=== PATIENT | male | born 1995 | race Caucasian/White ===

== ENCOUNTER 2017-02-16 18:38 | Emergency (ER) | payer MEDICAID ==
[~2017-02-16] VITALS: Ht 177.8 cm; Wt 68.0 kg
[2017-02-16 19:00] VITALS: BP 130/81
[2017-02-16] MEDS ORDERED: CYCLOBENZAPRINE HCL 10 MG TAB PO ONE (22:45)
[2017-02-16] MEDS ORDERED: IBUPROFEN 600 MG TAB PO ONE (22:45)
== END 2017-02-16 22:55 | disposition home or self-care (01) ==
LOC: EDBD 18:38 → ER 18:42
DX: S29.019A Strain of muscle and tendon of unspecified wall of thorax, initial encounter (principal); S16.1XXA Strain of muscle, fascia and tendon at neck level, initial encounter; S70.01XA Contusion of right hip, initial encounter; V49.09XA Driver injured in collision with other motor vehicles in nontraffic accident, initial encounter; Y93.89 Activity, other specified; Y92.410 Unspecified street and highway as the place of occurrence of the external cause; Y99.8 Other external cause status
CPT/HCPCS: 72070; 72100; 72125; 73502

== ENCOUNTER 2019-06-12 12:38 | Emergency (ER) | payer MEDICAID ==
[~2019-06-12] VITALS: Ht 177.8 cm; Wt 70.3 kg
[2019-06-12 15:44] VITALS: BP 132/76
== END 2019-06-12 16:02 | disposition home or self-care (01) ==
LOC: ER 12:38
DX: J06.9 Acute upper respiratory infection, unspecified (principal); R51 Headache

== ENCOUNTER 2019-09-13 15:03 | Emergency (ER) | payer OTHER, MEDICAID ==
[~2019-09-13] VITALS: Ht 175.3 cm; Wt 72.6 kg
[2019-09-13] MEDS ORDERED: ACETAMINOPHEN 325 MG TAB PO ONE (15:30)
[2019-09-13 16:21] VITALS: BP 103/68
== END 2019-09-13 16:25 | disposition home or self-care (01) ==
LOC: ER 15:03
DX: S29.012A Strain of muscle and tendon of back wall of thorax, initial encounter (principal); M41.35 Thoracogenic scoliosis, thoracolumbar region; V87.8XXA Person injured in other specified noncollision transport accidents involving motor vehicle (traffic), initial encounter; Y93.55 Activity, bike riding; Y92.488 Other paved roadways as the place of occurrence of the external cause; Y99.8 Other external cause status
CPT/HCPCS: 72070

== ENCOUNTER → 2019-09-27 | Emergency (ER) | payer MEDICAID, OTHER | END | disposition home or self-care (01) | LOC: ER 00:28 | DX: M54.9 Dorsalgia, unspecified (principal); Z53.21 Procedure and treatment not carried out due to patient leaving prior to being seen by health care provider ==

== ENCOUNTER 2019-10-04 16:12 | Emergency (ER) | payer MEDICAID ==
[~2019-10-04] VITALS: Ht 175.3 cm; Wt 72.6 kg
[2019-10-04 16:23] VITALS: BP 116/80
[2019-10-04] MEDS ORDERED: KETOROLAC TROMETH 60MG/2ML VIAL IM ONE (17:15)
== END 2019-10-04 18:22 | disposition home or self-care (01) ==
LOC: ER 16:12
DX: S39.012A Strain of muscle, fascia and tendon of lower back, initial encounter (principal); X50.1XXA Overexertion from prolonged static or awkward postures, initial encounter; Y93.89 Activity, other specified; Y92.89 Other specified places as the place of occurrence of the external cause; Y99.8 Other external cause status
CPT/HCPCS: 96372; 99283; J1885

== ENCOUNTER 2022-03-17 14:50 | Emergency (ER) | payer MEDICAID ==
[~2022-03-17] VITALS: Ht 175.3 cm; Wt 86.1 kg
[2022-03-17 16:20] VITALS: BP 121/66
[2022-03-17] MEDS ORDERED: HYDR-4902 PO ×2 (17:15→18:22)
[2022-03-17] MEDS ORDERED: TIZA2CAP12 PO ×2 (17:15→18:22)
[2022-03-18] MEDS ORDERED: HYDR-4902 PO (10:38)
== END 2022-03-17 17:51 | disposition home or self-care (01) ==
LOC: ER 14:50
DX: M41.85 Other forms of scoliosis, thoracolumbar region (principal); F12.10 Cannabis abuse, uncomplicated

== ENCOUNTER 2022-03-18 09:51 | Emergency (ER) | payer MEDICAID ==
[~2022-03-18] VITALS: Ht 177.8 cm; Wt 72.0 kg
[~2022-03-18 09:51] MED LIST: HYDR-4902 PO; TIZA2CAP12 PO
[2022-03-18 10:34] VITALS: BP 110/73
[2022-03-18] MEDS ORDERED: HYDR-4902 PO (10:38)
== END 2022-03-18 10:43 | disposition home or self-care (01) ==
LOC: ER 09:51
DX: G89.29 Other chronic pain (principal); M54.9 Dorsalgia, unspecified; F12.10 Cannabis abuse, uncomplicated; Z76.0 Encounter for issue of repeat prescription

== ENCOUNTER 2022-04-04 12:43 | Emergency (ER) | payer MEDICAID ==
[~2022-04-04] VITALS: Ht 177.8 cm; Wt 81.3 kg
[2022-04-04 12:51] VITALS: BP 118/85
== END 2022-04-04 13:40 | disposition left against medical advice (07) ==
LOC: ER 12:48
DX: G89.29 Other chronic pain (principal); M54.9 Dorsalgia, unspecified; F12.10 Cannabis abuse, uncomplicated; Z76.0 Encounter for issue of repeat prescription